=== PATIENT | male | born 1970 | race Caucasian/White ===

== ENCOUNTER 2018-07-30 10:33 | Emergency (ER) | payer OTHER ==
[~2018-07-30] VITALS: Ht 162.6 cm; Wt 68.0 kg
[2018-07-30 10:43] VITALS: BP 140/97; Ht 162.6 cm; Wt 68.0 kg
== END 2018-07-30 11:44 | disposition other institution (70) ==
LOC: ED 10:33
DX: Z02.89 Encounter for other administrative examinations (principal)